=== PATIENT | female | born 1940 | race Caucasian/White ===

== ENCOUNTER → 2019-08-06 | Outpatient (CLI) | payer MEDICARE, OTHER | LOC: WOUNDCARE 08:08 | PROVIDERS: ATTEND Nurse Practitioner | DX: L03.031 Cellulitis of right toe (principal) | CPT/HCPCS: 99203 ==

== ENCOUNTER → 2019-10-19 | Outpatient (CLI) | payer MEDICARE | LOC: WOUNDCARE 09:53 | PROVIDERS: ATTEND Preventive Medicine Undersea and Hyperbaric Medicine | DX: B35.1 Tinea unguium (principal) | CPT/HCPCS: 11720 ==

== ENCOUNTER 2022-03-29 04:51 | Observation (INO) | payer MEDICARE ==
[~2022-03-29] VITALS: Ht 160 cm; Wt 73.8 kg
--- NOTE | 2022-03-29 05:14 | ED GI ---
General Chief Complaint: Abdominal/GI Problems Stated Complaint: NAUSEA/VOMITING History of Present Illness Date Seen by Provider: Mar 29, 2022 Time Seen by Provider: 05:11 Initial Comments 81-year-old female with PMH of DM2/HTN, is here with complaints of multiple episodes of nausea and vomiting since yesterday afternoon after she had gone out for French food with a friend. Patient also has associated generalized abdominal pain and cramping. Denies fever, chest pain, shortness of breath, palpitations, diarrhea, hematemesis, melena, dizziness, headache. Patient recently got over COVID for which she was diagnosed at the end of February. (VIRGIE PETERSON MD) Allergies and Home Medications Allergies Coded Allergies: No Known Drug Allergies (Unverified , 03/29/22) Patient Home Medication List Home Medication List Reviewed: Yes (VIRGIE PETERSON MD) Cefpodoxime Proxetil (Cefpodoxime Proxetil) 100 Mg Tablet, 100 MG PO BID Prescribed by: VIRGIE PETERSON MD on 03/29/22 0652 Metronidazole (Flagyl) 375 Mg Capsule, 500 MG PO BID Prescribed by: VIRGIE PETERSON MD on 03/29/22 0652 Review of Systems Review of Systems Constitutional: no symptoms reported EENTM: No Symptoms Reported Respiratory: No Symptoms Reported Cardiovascular: No Symptoms Reported Gastrointestinal: Abdominal Pain, Nausea, Vomiting Genitourinary: No Symptoms Reported Musculoskeletal: no symptoms reported Skin: no symptoms reported Psychiatric/Neurological: No Symptoms Reported Endocrine: No Symptoms Reported Hematologic/Lymphatic: No Symptoms Reported (VIRGIE PETERSON MD) Physical Exam Vital Signs Vital Signs - First Documented 03/29/22 05:05 Temp 36.8 Pulse 70 Resp 18 B/P (MAP) 194/80 (118) Pulse Ox 97 O2 Delivery Room Air (HAO MADISON MD) Vital Signs Capillary Refill : (VIRGIE PETERSON MD) Height/Weight/BMI Height: '" Weight: lbs. oz. kg; BMI Method: General Appearance: WD/WN, mild distress HEENT: PERRL/EOMI, normal ENT inspection Neck: non-tender, full range of motion, supple Respiratory: chest non-tender, lungs clear, normal breath sounds Cardiovascular: normal peripheral pulses, no edema Gastrointestinal: normal bowel sounds, soft, tenderness (generalized) Extremities: normal range of motion, non-tender, normal inspection Back: normal inspection, no CVA tenderness, no vertebral tenderness Neurologic/Psychiatric: no motor/sensory deficits, alert, normal mood/affect, oriented x 3 Skin: normal color, warm/dry Lymphatic: no adenopathy (VIRGIE PETERSON MD) Focused Exam Lactate Level 03/29/22 05:05: Lactic Acid Level 2.53*H 03/29/22 07:05: Lactic Acid Level 2.43*H 03/29/22 09:07: Lactic Acid Level 2.00 (HAO MADISON MD) Lactic Acid Level Laboratory Tests Test 03/29/22 05:05 03/29/22 07:05 03/29/22 09:07 Lactic Acid Level 2.53 MMOL/L (0.50-2.00) *H 2.43 MMOL/L (0.50-2.00) *H 2.00 MMOL/L (0.50-2.00) (HAO MADISON MD) Progress/Results/Core Measures Results/Orders Lab Results Laboratory Tests Test 03/29/22 05:05 03/29/22 05:20 03/29/22 06:30 03/29/22 07:05 Range/Units White Blood Count 20.7 H 4.3-11.0 10^3/uL Red Blood Count 4.90 3.80-5.11 10^6/uL Hemoglobin 14.2 11.5-16.0 g/dL Hematocrit 43 35-52 % Mean Corpuscular Volume 89 80-99 fL Mean Corpuscular Hemoglobin 29 25-34 pg Mean Corpuscular Hemoglobin Concent 33 32-36 g/dL Red Cell Distribution Width 13.6 10.0-14.5 % Platelet Count 201 130-400 10^3/uL Mean Platelet Volume 11.1 9.0-12.2 fL Immature Granulocyte % (Auto) 1 % Neutrophils (%) (Auto) 89 H 42-75 % Lymphocytes (%) (Auto) 4 L 12-44 % Monocytes (%) (Auto) 6 0-12 % Eosinophils (%) (Auto) 0 0-10 % Basophils (%) (Auto) 0 0-10 % Neutrophils # (Auto) 18.5 H 1.8-7.8 10^3/uL Lymphocytes # (Auto) 0.9 L 1.0-4.0 10^3/uL Monocytes # (Auto) 1.2 H 0.0-1.0 10^3/uL Eosinophils # (Auto) 0.0 0.0-0.3 10^3/uL Basophils # (Auto) 0.0 0.0-0.1 10^3/uL Immature Granulocyte # (Auto) 0.1 0.0-0.1 10^3/uL Neutrophils % (Manual) 87 % Lymphocytes % (Manual) 2 % Monocytes % (Manual) 4 % Eosinophils % (Manual) 0 % Basophils % (Manual) 0 % Band Neutrophils 7 % Sodium Level 136 135-145 MMOL/L Potassium Level 4.3 3.6-5.0 MMOL/L Chloride Level 98 98-107 MMOL/L Carbon Dioxide Level 24 21-32 MMOL/L Anion Gap 14 5-14 MMOL/L Blood Urea Nitrogen 14 7-18 MG/DL Creatinine 0.67 0.60-1.30 MG/DL Estimat Glomerular Filtration Rate 87 BUN/Creatinine Ratio 21 Glucose Level 356 H 70-105 MG/DL Lactic Acid Level 2.53 *H 2.43 *H 0.50-2.00 MMOL/L Calcium Level 9.5 8.5-10.1 MG/DL Corrected Calcium 9.3 8.5-10.1 MG/DL Magnesium Level 1.8 1.6-2.4 MG/DL Total Bilirubin 0.9 0.1-1.0 MG/DL Aspartate Amino Transf (AST/SGOT) 16 5-34 U/L Alanine Aminotransferase (ALT/SGPT) 14 0-55 U/L Alkaline Phosphatase 96 40-136 U/L Total Protein 7.3 6.4-8.2 GM/DL Albumin 4.3 3.2-4.5 GM/DL Lipase 16 8-78 U/L Influenza Type A (RT-PCR) Not Detected Not Detecte Influenza Type B (RT-PCR) Not Detected Not Detecte SARS-CoV-2 RNA (RT-PCR) Detected H Not Detecte Urine Color YELLOW Urine Clarity CLEAR Urine pH 6.5 5-9 Urine Specific [place] 1.015 L 1.016-1.022 Urine Protein NEGATIVE NEGATIVE Urine Glucose (UA) 3+ H NEGATIVE Urine Ketones 3+ H NEGATIVE Urine Nitrite NEGATIVE NEGATIVE Urine Bilirubin NEGATIVE NEGATIVE Urine Urobilinogen 0.2 < = 1.0 MG/DL Urine Leukocyte Esterase NEGATIVE NEGATIVE Urine RBC (Auto) NEGATIVE NEGATIVE Urine RBC RARE /HPF Urine WBC RARE /HPF Urine Squamous Epithelial Cells RARE /HPF Urine Crystals NONE /LPF Urine Bacteria TRACE /HPF Urine Casts NONE /LPF Urine Mucus SMALL H /LPF Urine Culture Indicated NO Test 03/29/22 09:07 Range/Units Lactic Acid Level 2.00 0.50-2.00 MMOL/L (HAO MADISON MD) My Orders Orders - HAO MADISON MD Arterial Blood Gas (03/29/22 08:22) Prochlorperazine Injection (Compazine In (03/29/22 10:00) (HAO MADISON MD) Medications Given in ED Current Medications Medications Dose Ordered Sig/Seth Route Start Time Stop Time Status Last Admin Dose Admin Ceftriaxone Sodium/Dextrose 50 ml @ 100 mls/hr ONCE ONCE IV 03/29/22 06:30 03/29/22 06:59 DC 03/29/22 06:47 100 MLS/HR Metronidazole 100 ml @ 100 mls/hr ONCE ONCE IV 03/29/22 06:30 03/29/22 07:29 DC 03/29/22 07:16 100 MLS/HR Ondansetron HCl 4 mg ONCE ONCE IVP 03/29/22 05:45 03/29/22 05:46 DC 03/29/22 06:00 4 MG Ondansetron HCl 4 mg ONCE ONCE IVP 03/29/22 07:30 03/29/22 07:31 DC 03/29/22 07:27 4 MG (HAO MADISON MD) Vital Signs/I&O 03/29/22 05:05 Temp 36.8 Pulse 70 Resp 18 B/P (MAP) 194/80 (118) Pulse Ox 97 O2 Delivery Room Air (HAO MADISON MD) Progress Progress Note : Progress Note 1. ABDOMINAL PAIN: GASTROENTERITIS/ DIVERTICULOSIS WITHOUT -ITIS/ DEHYDRATION - CT ABD: No bowel obstruction or other acute abnormalities seen in the abdomen or pelvis. Small hiatal hernia. Fat-containing inguinal hernias bilaterally. Small amount of fluid in the right with a loop of bowel in the left, but no evidence of obstruction or strangulation.Colonic diverticulosis without diverticulitis. Small left adrenal nodule - Labs : WBC is elevated at 20.7 with a left shift - Elevated Lactic acid of 2.53 - Blood cultures ordered after antibiotics, but cultures were done before the antibiotics were given. - UA: positive ketones and glucose - NS IVF bolus - Repeat Lactic acid is: - Zofran iv STAT - Ceftriaxone 1gm and Flagyl iv STAT - Added CXR - SIgned out pt to Dr Madison (VIRGIE PETERSON MD) Progress Note : Progress Note Patient care transferred to [place] at [address] Peterson for follow-up with repeat lactic acid and chest x-ray. Patient evaluated and chart reviewed. Patient did not have abdominal tenderness but is still complaining of nausea and mild vomiting. Lactic acid reported 2.43. Chest x-ray did not show acute finding. ABG showed pH of 7.39. Because of leukocytosis and elevation of lactic acid and intractable nausea and vomiting plan to admit patient. Dr. Bautista accepted admission at 0841. Patient and her daughter informed about test results, plan of care and need for admission at [facility] because of lack of inpatient admission in this facility. (HAO MADISON MD) Diagnostic Imaging Diagonstic Imaging: CT Plain Films/CT/US/NM/MRI: abdomen Comments [facility]. [place], [place] NAME: JEANNA BELTRAN [facility] REC#: [id number] PT STATUS: REG ER : 1940 PHYSICIAN: VIRGIE PETERSON MD ADMIT DATE: 03/29/22/ER FS Draft Date of Exam:03/29/22 CT ABDOMEN/PELVIS WO PROCEDURE: CT abdomen and pelvis without contrast. TECHNIQUE: Multiple contiguous axial images were obtained through the abdomen and pelvis without the use of intravenous contrast. Auto Exposure Controls were utilized during the CT exam to meet ALARA standards for radiation dose reduction. INDICATION: Abdominal pain, nausea, vomiting. COMPARISON: None FINDINGS: The lung bases demonstrate mild atelectasis. There is a small hiatal hernia. The liver demonstrates no focal lesions. The spleen has calcified granulomas. The pancreas is unremarkable. There is a left adrenal nodule which measures 1.8 x 2.1 cm in size, with internal Hounsfield units of 13. The kidneys demonstrate no hydronephrosis. No calculi are seen. The bowel loops are nondistended without obstruction. The appendix is normal. No free fluid or free air is seen. There are small fat-containing inguinal hernias bilaterally. The left contains a loop of small bowel, with no obstruction or strangulation evident. There is diverticulosis of the colon, particularly the sigmoid colon, without evidence of diverticulitis. There is a small amount of fluid in the right inguinal hernia. There are degenerative changes in the spine with no acute osseous abnormality seen. IMPRESSION: 1. No bowel obstruction or other acute abnormalities seen in the abdomen or pelvis. 2. Small hiatal hernia. 3. Fat-containing inguinal hernias bilaterally. Small amount of fluid in the right with a loop of bowel in the left, but no evidence of obstruction or strangulation. 4. Colonic diverticulosis without diverticulitis. 5. Small left adrenal nodule, very likely an adenoma, but technically indeterminate. If needed, nonemergent CT with adrenal contrast protocol could be considered to further evaluate. Dictated on workstation # [id number] Dict: 03/29/22610 Trans: 03/29/2218 [id number] Interpreted by: NOEL BANDA MD Electronically signed by: (VIRGIE PETERSON MD) Plain Films/CT/US/NM/MRI: chest Comments DEBRA: JEANNA BELTRAN MED REC#: [id number] PT STATUS: REG ER : 1940 PHYSICIAN: VIRGIE PETERSON MD ADMIT DATE: 03/29/22/ER FS Draft Date of Exam:03/29/22 CHEST 1 VIEW AP/PA ONLY PATIENT HISTORY: vomiting. TECHNIQUE: Single frontal view of the chest. COMPARISON: None FINDINGS: The lung volumes are normal. No focal consolidation is seen. There are calcified granulomas bilaterally. No large pleural effusion or pneumothorax is seen. The cardiomediastinal silhouette is normal in size and contour. No acute osseous abnormality is seen. IMPRESSION: No acute pulmonary abnormality seen. Dictated on workstation # [id number] Dict: 03/29/22717 Trans: 03/29/2225 [id number] Interpreted by: NOEL BANDA MD Electronically signed by: (HAO MADISON MD) Departure Communication (Admissions) Time/Spoke to Admitting Phy: 08:41 Dr. Bautista accepted admission (HAO MADISON MD) Impression Primary Impression: Sepsis Qualified Codes: A41.9 - Sepsis, unspecified organism Additional Impressions: Gastroenteritis due to food toxin Diverticulosis of colon without diverticulitis Dehydration Intractable nausea and vomiting Disposition: ADMITTED INPATIENT Condition: Improved Admissions Decision to Admit Reason: Admit from ER (Trauma) (Intractable nausea and vomiting, sepsis, COVID infection) Decision to Admit/Date: Mar 29, 2022 Time/Decision to Admit Time: 08:54 (HAO MADISON MD) Departure-Patient Inst. Referrals: ERIC CHAVES MD (PCP/Family) Primary Care Physician Add. Discharge Instructions: All discharge instructions reviewed with patient and/or family. Voiced understanding. VIRGIE PETERSON MD Mar 29, 2022 05:14 HAO MADISON MD Mar 29, 2022 08:56
[2022-03-29] MEDS ORDERED: NS IV 1000 ML 1,000 ML IV STA (05:34)
[2022-03-29] MEDS ORDERED: ONDANSETRON 4 MG/2 ML (SDV) Z0FRAN IVP ONE ×2 (05:45→07:30)
[2022-03-29 05:48] LABS: BASOPHILS % (AUTO) 0 % (0-10); EOSINOPHILS % (AUTO) 0 % (0-10); HEMATOCRIT 43 % (35-52); HEMOGLOBIN 14.2 g/dL (11.5-16.0); LYMPHOCYTES # (AUTO) 0.9 10^3/uL (1.0-4.0); LYMPHOCYTES % (AUTO) 4 % (12-44); MEAN CORPUSCULAR HEMOGLOBIN 29 pg (25-34); MEAN CORPUSCULAR HGB CONC 33 g/dL (32-36); MEAN CORPUSCULAR VOLUME 89 fL (80-99); MEAN PLATELET VOLUME 11.1 fL (9.0-12.2); MONOCYTES # (AUTO) 1.2 10^3/uL (0.0-1.0); MONOCYTES % (AUTO) 6 % (0-12); NEUTROPHILS # (AUTO) 18.5 10^3/uL (1.8-7.8); NEUTROPHILS % (AUTO) 89 % (42-75); PLATELET COUNT 201 10^3/uL (130-400); WHITE BLOOD COUNT 20.7 10^3/uL (4.3-11.0)
[2022-03-29 06:08] LABS: BILIRUBIN,TOTAL 0.9 MG/DL (0.1-1.0); CALCIUM 9.5 MG/DL (8.5-10.1); CREATININE SERUM 0.67 MG/DL (0.60-1.30); MAGNESIUM 1.8 MG/DL (1.6-2.4); POTASSIUM 4.3 MMOL/L (3.6-5.0)
[2022-03-29 06:09] LABS: ALBUMIN 4.3 GM/DL (3.2-4.5); BAND NEUTROPHILS 7 %; BASOPHILS % (MANUAL) 0 %; EOSINOPHILS % (MANUAL) 0 %; LYMPHOCYTES % (MANUAL) 2 %; MONOCYTES % (MANUAL) 4 %; NEUTROPHILS % (MANUAL) 87 %; TOTAL PROTEIN 7.3 GM/DL (6.4-8.2)
--- NOTE | 2022-03-29 06:20 | Diagnostic Imaging Report ---
PROCEDURE: CT abdomen and pelvis without contrast. TECHNIQUE: Multiple contiguous axial images were obtained through the abdomen and pelvis without the use of intravenous contrast. Auto Exposure Controls were utilized during the CT exam to meet ALARA standards for radiation dose reduction. INDICATION: Abdominal pain, nausea, vomiting. COMPARISON: None FINDINGS: The lung bases demonstrate mild atelectasis. There is a small hiatal hernia. The liver demonstrates no focal lesions. The spleen has calcified granulomas. The pancreas is unremarkable. There is a left adrenal nodule which measures 1.8 x 2.1 cm in size, with internal Hounsfield units of 13. The kidneys demonstrate no hydronephrosis. No calculi are seen. The bowel loops are nondistended without obstruction. The appendix is normal. No free fluid or free air is seen. There are small fat-containing inguinal hernias bilaterally. The left contains a loop of small bowel, with no obstruction or strangulation evident. There is diverticulosis of the colon, particularly the sigmoid colon, without evidence of diverticulitis. There is a small amount of fluid in the right inguinal hernia. There are degenerative changes in the spine with no acute osseous abnormality seen. IMPRESSION: 1. No bowel obstruction or other acute abnormalities seen in the abdomen or pelvis. 2. Small hiatal hernia. 3. Fat-containing inguinal hernias bilaterally. Small amount of fluid in the right with a loop of bowel in the left, but no evidence of obstruction or strangulation. 4. Colonic diverticulosis without diverticulitis. 5. Small left adrenal nodule, very likely an adenoma, but technically indeterminate. If needed, nonemergent CT with adrenal contrast protocol could be considered to further evaluate. Dictated by: Dictated on workstation # [id number]
[2022-03-29] MEDS ORDERED: cefTRIAXone 1 GM PRE-MIX 50 ML IV ONE (06:30)
[2022-03-29] MEDS ORDERED: metroNIDAZOLE 500MG/100ML IVPB 100 ML IV ONE (06:30)
[2022-03-29 06:48] LABS: BILIRUBIN,URINE NEGATIVE (NEGATIVE); CLARITY,URINE CLEAR; COLOR,URINE YELLOW; GLUCOSE, URINE (UA) 3+ (NEGATIVE); KETONES,URINE 3+ (NEGATIVE); LEUKOCYTE ESTERASE ,URINE NEGATIVE (NEGATIVE); NITRITE,URINE NEGATIVE (NEGATIVE); PH,URINE 6.5 (5-9); PROTEIN,URINE NEGATIVE (NEGATIVE)
[2022-03-29] MEDS ORDERED: CEFP100T2 PO (06:52)
[2022-03-29] MEDS ORDERED: METR375C PO (06:52)
[2022-03-29 07:04] LABS: BACTERIA,URINE TRACE /HPF; RBC,URINE RARE /HPF; SQUAMOUS EPITHELIAL CELL,UR RARE /HPF; WBC,URINE RARE /HPF
--- NOTE | 2022-03-29 07:25 | Diagnostic Imaging Report ---
PATIENT HISTORY: vomiting. TECHNIQUE: Single frontal view of the chest. COMPARISON: None FINDINGS: The lung volumes are normal. No focal consolidation is seen. There are calcified granulomas bilaterally. No large pleural effusion or pneumothorax is seen. The cardiomediastinal silhouette is normal in size and contour. No acute osseous abnormality is seen. IMPRESSION: No acute pulmonary abnormality seen. Dictated by: Dictated on workstation # [id number]
[2022-03-29] MEDS ORDERED: PROCHLORPERAZINE 10 MG/2ML INJ (COMPAZINE) IV ONE (10:00)
[2022-03-29] MEDS ORDERED: ONDANSETRON 4 MG (ZOFRAN) ORAL DISSOLVE TAB PO PRN (14:00)
[2022-03-29] MEDS ORDERED: morphine INJ 4 MG/ML 1 ML (VIAL/SYRINGE) IV PRN (14:00)
[2022-03-29] MEDS ORDERED: PROCHLORPERAZINE 10 MG TAB (COMPAZINE) PO PRN (14:00)
[2022-03-29] MEDS ORDERED: ANTACID SUSP 30 ML UDC (MYLANTA) PO PRN (14:00)
[2022-03-29] MEDS ORDERED: BISACODYL 10 MG SUPP (DULCOLAX) PR PRN (14:00)
[2022-03-29] MEDS ORDERED: ACETAMINOPHEN 325 MG TABLET PO PRN (14:00)
[2022-03-29] MEDS ORDERED: MELATONIN 3 MG TABLET PO PRN (14:00)
[2022-03-29] MEDS ORDERED: diphenhydrAMINE 25 MG TAB (BENADRYL) PO PRN (14:00)
[2022-03-29] MEDS ORDERED: ONDANSETRON 4 MG/2 ML (SDV) Z0FRAN IV PRN (14:00)
[2022-03-29] MEDS ORDERED: ENOXAPARIN 40 MG/0.4 ML (LOVENOX) SYR SC SCH (14:00)
[2022-03-29] MEDS ORDERED: ALPRAZolam 0.25 MG (XANAX) TAB PO PRN (14:00)
[2022-03-29] MEDS ORDERED: PROMETHAZINE INJ 25 MG/ML (PHENERGAN) AMP IM PRN (14:00)
[2022-03-29] MEDS ORDERED: diphenhydrAMINE 50 MG/ML INJ (BENADRYL) IVP PRN (14:00)
[2022-03-29] MEDS ORDERED: polyethylene glycoL POWDER 17 GM (MIRALAX) PACK PO PRN (14:00)
[2022-03-29] MEDS ORDERED: cefTRIAXone 1 GM PRE-MIX 50 ML IV SCH (14:00)
[2022-03-29 14:08] VITALS: BP 186/81
--- NOTE | 2022-03-29 14:45 | History & Physical-Hospitalist ---
YAN ZHOU 03/29/22 1445: History of Present Illness HPI/Chief Complaint Penny James is an 81 yo female with past medical history of T2DM and HTN who presents on 03/29 with 12 hour history of N/V and abdominal cramps after eating at a [place] food buffet. She ate lunch at the restaurant with a friend yesterday and 2 hours later developed severe stomach cramps followed by numerous episodes of vomiting and two episodes of diarrhea. She tried to take peptobismol but was unable to keep the medication down. The friend that she ate lunch with reported mild abdominal cramping but no N/V. She recently had Covid, but had been asymptomatic before these symptoms began. She received antiemetic medications in the ED and has not vomited since. Her stomach cramps have fully resolved and she denies any abdominal pain but remains slightly nauseous. Source: patient, family Date Seen 03/29/22 Time Seen by a Provider: 14:30 Attending Physician Antony Velez MD PCP Admitting Physician: Shana Medina DO Attending Physician: Shana Medina DO Referring Physician Date of Admission Mar 29, 2022 at 13:42 Home Medications & Allergies Home Medications Reviewed patient Home Medication Reconciliation performed by pharmacy medication reconciliations maintenance technician 2nd shift and/or nursing. Patients Allergies have been reviewed. Allergies Allergies Coded Allergies No Known Drug Allergies (Unverified03/29/22) Past Rhyrrrr-Mwyaai-Lfjcas Hx Patient Social History Tobacco Use?: No Substance use?: No Alcohol Use?: No Pt feels they are or have been: No Current Status status: No Advance Directives: No Communicates: Verbally Primary Language: Welsh Preferred Spoken Language: Welsh Is interpretation needed?: No Past Medical History Surgeries: Tubal Ligation Heart Murmur (aortic and mitral valve regurgitation), Hypertension [employer] History: Tubal Ligation Diabetes, Non-Insulin dep Family Medical History Heart Disease (Father and Mother), Diabetes (Mother) Review of Systems Constitutional: No chills, No diaphoresis, No dizziness, No fever, No weight gain, No weight loss EENTM: No blurred vision, No eye pain, No throat pain Respiratory: No cough, No dyspnea on exertion Cardiovascular: No chest pain Gastrointestinal: No abdominal pain; diarrhea, loss of appetite, nausea, vomiting Genitourinary: No dysuria, No frequency Musculoskeletal: joint pain (Left knee (chronic problem)) Skin: rash (over right leg and left arm (chronic problem)) Psychiatric/Neurological: Denies Headache, Denies Weakness Physical Exam Physical Exam Vital Signs Vital Signs - First Documented 03/29/22 05:05 Temp 36.8 Pulse 70 Resp 18 B/P (MAP) 194/80 (118) Pulse Ox 97 O2 Delivery Room Air Capillary Refill : Less Than 3 Seconds Height, Weight, BMI Height: '" Weight: lbs. oz. kg; 28.82 BMI Method: General Appearance: No Apparent Distress HEENT: PERRL/EOMI, Other (dry lips) Neck: Normal Inspection, Non Tender, Supple Respiratory: Chest Non Tender, Lungs Clear, Normal Breath Sounds Cardiovascular: Regular Rate, Rhythm, No Edema, No JVD, Normal Peripheral Puls es, Systolic Murmur Gastrointestinal: Normal Bowel Sounds, Non Tender Rectal: Deferred Back: Normal Inspection, No CVA Tenderness Extremity: Normal Capillary Refill, No Calf Tenderness Neurologic/Psychiatric: Alert, Oriented x3 Skin: Normal Color, Warm/Dry, Rash (scabs present over right leg and left forearm) Lymphatic: No Adenopathy Results Results/Procedures Labs Laboratory Tests 03/29/22 05:05 Patient resulted labs reviewed. Assessment/Plan Admission Diagnosis Gastroenteritis Assessment and Plan 1) Abdominal Pain: Gastroenteritis * Labs : WBC is elevated at 20.7 with a left shift * Elevated Lactic acid of 2.53 in ED, trending down. Now 2.00 * Blood cultures ordered and pending * NS IVF bolus * Zofran, compazine, and phenergan for nausea * Ceftriaxone and Flagyl * CT ABD (03/29): No bowel obstruction or other acute abnormalities seen in the abdomen or pelvis. Colonic diverticulosis without diverticulitis. Small left adrenal nodule * CXR (03/29): Unremarkable * UA: positive ketones and glucose 2) T2DM * Hold home medications in inpatient setting * Glucose in 300s today * UA: positive ketones and glucose * Sliding scale insulin 3) HTN * BP elevated today, patient denies taking antihypertensive at home * Consider starting antihypertensive SHANA MEDINA DO 03/30/22 0606: History of Present Illness HPI/Chief Complaint CC: Abdominal pain with N/V HPI: This is a pt that presented with JOSE E and was found to have colitis on imaging scan. She was placed on Rocephin and Flagyl. She was found to be Covid positive. She denied any cough or SOB. No hypoxia. She will be given supportive care and monitored closely for any decline from Covid. Source: patient, family Past Tieiuwt-Mlinwk-Xgfwga Hx Patient Social History Marrital Status: Employed/Student: retired Smoking Status: Former Smoker Review of Systems Constitutional: see HPI Gastrointestinal: diarrhea, loss of appetite, nausea, vomiting Physical Exam Physical Exam General Appearance: No Apparent Distress Eyes: Right Eye Normal Inspection, Right Eye PERRL HEENT: PERRL/EOMI, Normal ENT Inspection, Pharynx Normal, Moist Mucous Membranes Neck: Full Range of Motion, Normal Inspection, Non Tender Respiratory: Chest Non Tender, Lungs Clear, Normal Breath Sounds, No Accessory Muscle Use, No Respiratory Distress Cardiovascular: Regular Rate, Rhythm, No Edema, No Gallop, No JVD, No Murmur, Normal Peripheral Pulses Gastrointestinal: Normal Bowel Sounds, No Organomegaly, No Pulsatile Mass, Non Tender, Soft Back: Normal Inspection, No CVA Tenderness, No Vertebral Tenderness Extremity: Normal Capillary Refill, Normal Inspection, Normal Range of Motion, Non Tender, No Calf Tenderness, No Pedal Edema Neurologic/Psychiatric: Alert, Oriented x3, No Motor/Sensory Deficits, Normal Mood/Affect Skin: Normal Color, Warm/Dry Lymphatic: No Adenopathy Assessment/Plan Admission Diagnosis Colitis. COVID 19 N/V Plan: IVF Supportive care Admission Status: Observation Diagnosis/Problems Diagnosis/Problems (1) Intractable nausea and vomiting Status: Acute (2) Dehydration Status: Acute (3) COVID Supervisory-Addendum Brief Verification & Attestation Participated in pt care: history, MDM, physical Personally performed: exam, history, MDM, supervision of care Care discussed with: Medical Student Procedures: n/a Results interpretation: Verified all documentation Verification and Attestation of Medical Student E/M Service A medical student performed and documented this service in my presence. I reviewed and verified all information documented by the medical student and made modifications to such information, when appropriate. I personally performed the physical exam and medical decision making. Shana Medina Mar 30, 2022,21:12 YAN ZHOU Mar 29, 2022 14:45 SHANA MEDINA DO Mar 30, 2022 06:06
[2022-03-29] MEDS: NS IV 1000 ML 1,000 ML IV SCH (15:00)
[2022-03-29] MEDS: metroNIDAZOLE 500MG/100ML IVPB 100 ML IV SCH ×2 (15:00→21:37)
[2022-03-29] MEDS ORDERED: SIMV20TA26 PO (15:49)
[2022-03-29] MEDS ORDERED: ASPI81CA PO (15:49)
[2022-03-29] MEDS ORDERED: ASCO-262 PO (15:49)
[2022-03-29] MEDS ORDERED: PREVAGEN PO (15:49)
[2022-03-29] MEDS ORDERED: ZINC50TA58 PO (15:49)
[2022-03-29] MEDS ORDERED: LOSA25TA41 PO (15:49)
[2022-03-29] MEDS ORDERED: GLIM2TAB4 PO (15:49)
[2022-03-29] MEDS ORDERED: METF-397 PO (15:49)
[2022-03-29] MEDS ORDERED: VIT1CAPS5 PO (15:49)
[2022-03-29] MEDS ORDERED: CHOL200059 PO (15:49)
[2022-03-29 15:58] VITALS: BP 178/77
[2022-03-29 16:09] VITALS: BP 178/77
[2022-03-29] MEDS: inSUlin ASPART (NovoLOG) 1 UNIT/0.01 ML (CHARGE PER UNIT) SC SCH ×2 (16:59→21:38)
[2022-03-29 20:01] VITALS: BP 114/67
[2022-03-29] MEDS: DOCUSATE SODIUM 100 MG (COLACE) CAP PO SCH (21:38)
[2022-03-30 00:04] VITALS: BP 104/53
[2022-03-30] MEDS: NS IV 1000 ML 1,000 ML IV SCH ×2 (01:14→05:58)
[2022-03-30 03:37] VITALS: BP 125/56
[2022-03-30 05:44] LABS: BASOPHILS % (AUTO) 0 % (0-10); EOSINOPHILS # (AUTO) 0.1 10^3/uL (0.0-0.3); EOSINOPHILS % (AUTO) 1 % (0-10); HEMATOCRIT 36 % (35-52); HEMOGLOBIN 11.8 g/dL (11.5-16.0); LYMPHOCYTES # (AUTO) 2.3 10^3/uL (1.0-4.0); LYMPHOCYTES % (AUTO) 14 % (12-44); MEAN CORPUSCULAR HEMOGLOBIN 30 pg (25-34); MEAN CORPUSCULAR HGB CONC 33 g/dL (32-36); MEAN CORPUSCULAR VOLUME 91 fL (80-99); MEAN PLATELET VOLUME 10.6 fL (9.0-12.2); MONOCYTES # (AUTO) 1.4 10^3/uL (0.0-1.0); MONOCYTES % (AUTO) 8 % (0-12); NEUTROPHILS # (AUTO) 12.6 10^3/uL (1.8-7.8); NEUTROPHILS % (AUTO) 77 % (42-75); PLATELET COUNT 161 10^3/uL (130-400); WHITE BLOOD COUNT 16.4 10^3/uL (4.3-11.0)
[2022-03-30] MEDS: inSUlin ASPART (NovoLOG) 1 UNIT/0.01 ML (CHARGE PER UNIT) SC SCH ×2 (05:58→11:08)
[2022-03-30] MEDS: metroNIDAZOLE 500MG/100ML IVPB 100 ML IV SCH (05:58)
[2022-03-30 05:59] LABS: ALBUMIN 3.2 GM/DL (3.2-4.5); POTASSIUM 3.5 MMOL/L (3.6-5.0)
[2022-03-30 06:00] LABS: CALCIUM 8.2 MG/DL (8.5-10.1)
[2022-03-30 06:02] LABS: TOTAL PROTEIN 5.3 GM/DL (6.4-8.2)
[2022-03-30 06:03] LABS: BILIRUBIN,TOTAL 0.7 MG/DL (0.1-1.0)
[2022-03-30 06:05] LABS: CREATININE SERUM 0.69 MG/DL (0.60-1.30)
[2022-03-30] MEDS ORDERED: cefTRIAXone 1 GM PRE-MIX 50 ML IV SCH (07:00)
[2022-03-30] MEDS: DOCUSATE SODIUM 100 MG (COLACE) CAP PO SCH (08:25)
[2022-03-30 08:58] VITALS: BP 138/63
--- NOTE | 2022-03-30 10:18 | Discharge Summary ---
Diagnosis/Chief Complaint Date of Admission Mar 29, 2022 at 13:42 Date of Discharge Discharge Date: Mar 30, 2022 Discharge Summary Discharge Physical Examination Allergies: Coded Allergies: amoxicillin (Verified Allergy, Unknown, 03/30/22) clavulanic acid (Verified Allergy, Unknown, 03/30/22) Vitals & I&Os Vital Signs Date Time Temp Pulse Resp B/P (MAP) Pulse Ox O2 Delivery O2 Flow Rate FiO2 03/30/22 08:58 36.5 58 19 138/63 (88) 100 Room Air 03/29/22 16:09 21 Hospital Course Labs (last 24 hrs) Laboratory Tests 03/29/22 05:05: White Blood Count 20.7H, Red Blood Count 4.90, Hemoglobin 14.2, Hematocrit 43, Mean Corpuscular Volume 89, Mean Corpuscular Hemoglobin 29, Mean Corpuscular Hemoglobin Concent 33, Red Cell Distribution Width 13.6, Platelet Count 201, Mean Platelet Volume 11.1, Immature Granulocyte % (Auto) 1, Neutrophils (%) (Auto) 89H, Lymphocytes (%) (Auto) 4L, Monocytes (%) (Auto) 6, Eosinophils (%) (Auto) 0, Basophils (%) (Auto) 0, Neutrophils # (Auto) 18.5H, Lymphocytes # ( Auto) 0.9L, Monocytes # (Auto) 1.2H, Eosinophils # (Auto) 0.0, Basophils # (Auto) 0.0, Immature Granulocyte # (Auto) 0.1, Neutrophils % (Manual) 87, Lymphocytes % (Manual) 2, Monocytes % (Manual) 4, Eosinophils % (Manual) 0, Basophils % (Manual) 0, Band Neutrophils 7, Sodium Level 136, Potassium Level 4.3, Chloride Level 98, Carbon Dioxide Level 24, Anion Gap 14, Blood Urea Nitrogen 14, Creatinine 0.67, Estimat Glomerular Filtration Rate 87, BUN/Creatinine Ratio 21, Glucose Level 356H, Lactic Acid Level 2.53*H, Calcium Level 9.5, Corrected Calcium 9.3, Magnesium Level 1.8, Total Bilirubin 0.9, Aspartate Amino Transf (AST/SGOT) 16, Alanine Aminotransferase (ALT/SGPT) 14, Alkaline Phosphatase 96, Total Protein 7.3, Albumin 4.3, Lipase 16 03/29/22 05:20: Influenza Type A (RT-PCR) Not Detected, Influenza Type B (RT-PCR) Not Detected, SARS-CoV-2 RNA (RT-PCR) DetectedH 03/29/22 06:30: Urine Color YELLOW, Urine Clarity CLEAR, Urine pH 6.5, Urine Specific [place] 1.015L, Urine Protein NEGATIVE, Urine Glucose (UA) 3+H, Urine Ketones 3+H, Urine Nitrite NEGATIVE, Urine Bilirubin NEGATIVE, Urine Urobilinogen 0.2, Urine Leukocyte Esterase NEGATIVE, Urine RBC (Auto) NEGATIVE, Urine RBC RARE, Urine WBC RARE, Urine Squamous Epithelial Cells RARE, Urine Crystals NONE, Urine Bacteria TRACE, Urine Casts NONE, Urine Mucus SMALLH, Urine Culture Indicated NO 03/29/22 07:05: Lactic Acid Level 2.43*H 03/29/22 09:07: Lactic Acid Level 2.00 03/29/22 10:57: Glucometer 308H 03/29/22 15:08: Glucometer 298H 03/29/22 21:00: Glucometer 300H 03/30/22 05:22: White Blood Count 16.4H, Red Blood Count 4.00, Hemoglobin 11.8, Hematocrit 36, Mean Corpuscular Volume 91, Mean Corpuscular Hemoglobin 30, Mean Corpuscular Hemoglobin Concent 33, Red Cell Distribution Width 14.3, Platelet Count 161, Mean Platelet Volume 10.6, Immature Granulocyte % (Auto) 1, Neutrophils (%) (Auto) 77H, Lymphocytes (%) (Auto) 14, Monocytes (%) (Auto) 8, Eosinophils (%) (Auto) 1, Basophils (%) (Auto) 0, Neutrophils # (Auto) 12.6H, Lymphocytes # (Auto) 2.3, Monocytes # (Auto) 1.4H, Eosinophils # (Auto) 0.1, Basophils # (Auto) 0.0, Immature Granulocyte # (Auto) 0.1, Sodium Level 139, Potassium Level 3.5L, Chloride Level 108H, Carbon Dioxide Level 21, Anion Gap 10, Blood Urea Nitrogen 14, Creatinine 0.69, Estimat Glomerular Filtration Rate 87, BUN/Creatinine Ratio 20, Glucose Level 200H, Calcium Level 8.2L, Corrected Calcium 8.8, Total Bilirubin 0.7, Aspartate Amino Transf (AST/SGOT) 17, Alanine Aminotransferase (ALT/SGPT) 13, Alkaline Phosphatase 59, Total Protein 5.3L, Albumin 3.2 03/30/22 05:44: Glucometer 214H Pending Labs Laboratory Tests 03/29/22 05:05: White Blood Count 20.7, Red Blood Count 4.90, Hemoglobin 14.2, Hematocrit 43, Mean Corpuscular Volume 89, Mean Corpuscular Hemoglobin 29, Mean Corpuscular Hemoglobin Concent 33, Red Cell Distribution Width 13.6, Platelet Count 201, Mean Platelet Volume 11.1, Immature Granulocyte % (Auto) 1, Neutrophils (%) (Auto) 89, Lymphocytes (%) (Auto) 4, Monocytes (%) (Auto) 6, Eosinophils (%) (Auto) 0, Basophils (%) (Auto) 0, Neutrophils # (Auto) 18.5, Lymphocytes # (Auto) 0.9, Monocytes # (Auto) 1.2, Eosinophils # (Auto) 0.0, Basophils # (Auto) 0.0, Immature Granulocyte # (Auto) 0.1, Neutrophils % (Manual) 87, Lymphocytes % (Manual) 2, Monocytes % (Manual) 4, Eosinophils % (Manual) 0, Basophils % (Manual) 0, Band Neutrophils 7, Sodium Level 136, Potassium Level 4.3, Chloride Level 98, Carbon Dioxide Level 24, Anion Gap 14, Blood Urea Nitrogen 14, Creatinine 0.67, Estimat Glomerular Filtration Rate 87, BUN/Creatinine Ratio 21, Glucose Level 356, Lactic Acid Level 2.53, Calcium Level 9.5, Corrected Calcium 9.3, Magnesium Level 1.8, Total Bilirubin 0.9, Aspartate Amino Transf (AST/SGOT) 16, Alanine Aminotransferase (ALT/SGPT) 14, Alkaline Phosphatase 96, Total Protein 7.3, Albumin 4.3, Lipase 16 03/29/22 05:20: Influenza Type A (RT-PCR) Not Detected, Influenza Type B (RT-PCR) Not Detected, SARS-CoV-2 RNA (RT-PCR) Detected 03/29/22 06:30: Urine Color YELLOW, Urine Clarity CLEAR, Urine pH 6.5, Urine Specific [place] 1.015, Urine Protein NEGATIVE, Urine Glucose (UA) 3+, Urine Ketones 3+, Urine Nitrite NEGATIVE, Urine Bilirubin NEGATIVE, Urine Urobilinogen 0.2, Urine Leukocyte Esterase NEGATIVE, Urine RBC (Auto) NEGATIVE, Urine RBC RARE, Urine WBC RARE, Urine Squamous Epithelial Cells RARE, Urine Crystals NONE, Urine Bacteria TRACE, Urine Casts NONE, Urine Mucus SMALL, Urine Culture Indicated NO 03/29/22 07:05: Lactic Acid Level 2.43 03/29/22 09:07: Lactic Acid Level 2.00 03/29/22 10:57: Glucometer 308 03/29/22 15:08: Glucometer 298 03/29/22 21:00: Glucometer 300 03/30/22 05:22: White Blood Count 16.4, Red Blood Count 4.00, Hemoglobin 11.8, Hematocrit 36, Mean Corpuscular Volume 91, Mean Corpuscular Hemoglobin 30, Mean Corpuscular Hemoglobin Concent 33, Red Cell Distribution Width 14.3, Platelet Count 161, Mean Platelet Volume 10.6, Immature Granulocyte % (Auto) 1, Neutrophils (%) (Auto) 77, Lymphocytes (%) (Auto) 14, Monocytes (%) (Auto) 8, Eosinophils (%) (Auto) 1, Basophils (%) (Auto) 0, Neutrophils # (Auto) 12.6, Lymphocytes # (Auto) 2.3, Monocytes # (Auto) 1.4, Eosinophils # (Auto) 0.1, Basophils # (Auto) 0.0, Immature Granulocyte # (Auto) 0.1, Sodium Level 139, Potassium Level 3.5, C hloride Level 108, Carbon Dioxide Level 21, Anion Gap 10, Blood Urea Nitrogen 14, Creatinine 0.69, Estimat Glomerular Filtration Rate 87, BUN/Creatinine Ratio 20, Glucose Level 200, Calcium Level 8.2, Corrected Calcium 8.8, Total Bilirubin 0.7, Aspartate Amino Transf (AST/SGOT) 17, Alanine Aminotransferase (ALT/SGPT) 13, Alkaline Phosphatase 59, Total Protein 5.3, Albumin 3.2 03/30/22 05:44: Glucometer 214 Discharge Home Medications: Active Scripts Active Reported Vitamin C (Ascorbate Calcium) 500 Mg Tablet 500 Mg PO DAILY [place] (Aspirin) 81 Mg Capsule 81 Mg PO DAILY Preservision Areds Softgel (Vit A/C/E/Zinc/Co) 14,320-226 Capsule 1 Cap PO BID [Prevagen] 1 Ea PO DAILY Zinc 50 Mg Tablet 50 Mg PO DAILY Vitamin D3 (Cholecalciferol (Vitamin D3)) 50 Mcg (2000 Unit) Tablet 50 Mcg PO DAILY Losartan Potassium 25 Mg Tablet 25 Mg PO HS Simvastatin 20 Mg Tablet 20 Mg PO HS Glimepiride 2 Mg Tablet 2 Mg PO DAILY Metformin HCl 500 Mg Tablet 500 Mg PO BIDPC Instructions to patient/family Please see electronic discharge instructions given to patient. LORETO MEDINA DO Mar 30, 2022 10:18
--- NOTE | 2022-03-30 10:19 | Discharge Summary ---
Discharge Summary Hospital Course Was the Problem List Reviewed?: Yes Problems/Dx: (1) Intractable nausea and vomiting Status: Acute (2) Dehydration Status: Acute Hospital Course Date of Admission: Mar 29, 2022 at 13:42 Admission Diagnosis : Family Physician/Provider: Antony Velez MD Date of Discharge: 03/30/22 Discharge Diagnosis: [ ] Hospital Course: Brief Hospital Course: Penny James is an 81 yo female with past medical history of T2DM and HTN who presented on 03/29 with 12 hour history of N/V and abdominal cramps after eating at a [employer] food buffet. Upon arrival she had an leukocytosis and an elevated lactic acid. Blood cultures were obtained and she was started on Ceftriaxone, Flagyl, and IV fluids. Zofran, Compazine, and Phenergan were provided for nausea. a CT abdomen showed no evidence of bowel obstruction. Chest x ray was unremarkable. UA was positive for ketones and glucose but showed no evidence of infection. Her labs trended downward and she had no episodes of emesis while inpatient. Antibiotics were discontinued. Her diabetes was controlled with sliding scale insulin throughout her hospitalization. She is being discharged home in stable condition with instr uctions to follow up with her PCP in one week. YAN ZHOU Labs and Pending Lab Test: Laboratory Tests 03/29/22 10:57: Glucometer 308H 03/29/22 15:08: Glucometer 298H 03/29/22 21:00: Glucometer 300H 03/30/22 05:22: White Blood Count 16.4H, Red Blood Count 4.00, Hemoglobin 11.8, Hematocrit 36, Mean Corpuscular Volume 91, Mean Corpuscular Hemoglobin 30, Mean Corpuscular Hemoglobin Concent 33, Red Cell Distribution Width 14.3, Platelet Count 161, Mean Platelet Volume 10.6, Immature Granulocyte % (Auto) 1, Neutrophils (%) (Auto) 77H, Lymphocytes (%) (Auto) 14, Monocytes (%) (Auto) 8, Eosinophils (%) (Auto) 1, Basophils (%) (Auto) 0, Neutrophils # (Auto) 12.6H, Lymphocytes # (Auto) 2.3, Monocytes # (Auto) 1.4H, Eosinophils # (Auto) 0.1, Basophils # (Auto) 0.0, Immature Granulocyte # (Auto) 0.1, Sodium Level 139, Potassium Level 3.5L, Chloride Level 108H, Carbon Dioxide Level 21, Anion Gap 10, Blood Urea Nitrogen 14, Creatinine 0.69, Estimat Glomerular Filtration Rate 87, BUN/Cre atinine Ratio 20, Glucose Level 200H, Calcium Level 8.2L, Corrected Calcium 8.8, Total Bilirubin 0.7, Aspartate Amino Transf (AST/SGOT) 17, Alanine Aminotransferase (ALT/SGPT) 13, Alkaline Phosphatase 59, Total Protein 5.3L, Albumin 3.2 03/30/22 05:44: Glucometer 214H Home Meds Active Reported Vitamin C (Ascorbate Calcium) 500 Mg Tablet 500 Mg PO DAILY [place] (Aspirin) 81 Mg Capsule 81 Mg PO DAILY Preservision Areds Softgel (Vit A/C/E/Zinc/Co) 14,320-226 Capsule 1 Cap PO BID [Prevagen] 1 Ea PO DAILY Zinc 50 Mg Tablet 50 Mg PO DAILY Vitamin D3 (Cholecalciferol (Vitamin D3)) 50 Mcg (2000 Unit) Tablet 50 Mcg PO DAILY Losartan Potassium 25 Mg Tablet 25 Mg PO HS Simvastatin 20 Mg Tablet 20 Mg PO HS Glimepiride 2 Mg Tablet 2 Mg PO DAILY Metformin HCl 500 Mg Tablet 500 Mg PO BIDPC Assessment/Pt Instructions Gastroenteritis Discharge Planning: <30 minutes discharge planning Discharge Instructions Discharge Diet: ADA Diet Discharge Physical Examination Vital Signs Vital Signs Date Time Temp Pulse Resp B/P (MAP) Pulse Ox O2 Delivery O2 Flow Rate FiO2 03/30/22 08:58 36.5 58 19 138/63 (88) 100 Room Air 03/29/22 16:09 21 General Appearance: No Apparent Distress, WD/WN, Chronically ill Allergies: Coded Allergies: amoxicillin (Verified Allergy, Unknown, 03/30/22) clavulanic acid (Verified Allergy, Unknown, 03/30/22) Discharge Summary Date of Admission Mar 29, 2022 at 13:42 Date of Discharge Discharge Date: Mar 30, 2022 Admission Diagnosis Colitis. COVID 19 N/V LORETO MEDINA DO Mar 30, 2022 10:19
--- NOTE | 2022-03-30 11:39 | Progress Note ---
YAN ZHOU 03/30/22 1139: Progress Note Brief Hospital Course: Penny James is an 81 yo female with past medical history of T2DM and HTN who presented on 03/29 with 12 hour history of N/V and abdominal cramps after eating at a [employer] food buffet. Upon arrival she had an leukocytosis and an elevated lactic acid. Blood cultures were obtained and she was started on Ceftriaxone, Flagyl, and IV fluids. Zofran, Compazine, and Phenergan were provided for nausea. a CT abdomen showed no evidence of bowel obstruction. Chest x ray was unremarkable. UA was positive for ketones and glucose but showed no evidence of infection. Her labs trended downward and she had no episodes of emesis while inpatient. Antibiotics were discontinued. Her diabetes was controlled with sliding scale insulin throughout her hospitalization. She is being discharged home in stable condition with instructions to follow up with her PCP in one week. SHANA MEDINA DO 03/30/22 2208: Supervisory-Addendum Brief Verification & Attestation Participated in pt care: history, MDM, physical Personally performed: exam, history, MDM, supervision of care Care discussed with: Medical Student Procedures: n/a Results interpretation: Verified all documentation Verification and Attestation of Medical Student E/M Service A medical student performed and documented this service in my presence. I reviewed and verified all information documented by the medical student and made modifications to such information, when appropriate. I personally performed the physical exam and medical decision making. Shana Medina, Mar 30, 2022,22:08 YAN ZHOU Mar 30, 2022 11:39 SHANA MEDINA DO Mar 30, 2022 22:08
[2022-03-30 11:50] VITALS: BP 138/63
[2022-03-30] MEDS ORDERED: metFORMIN 500 MG (GLUCOPHAGE) TAB PO SCH (18:00)
[2022-03-30] MEDS ORDERED: NON-FORMULARY MEDICATION 1 EA EA (Simvastatin 20 MG) PO SCH (21:00)
[2022-03-30] MEDS ORDERED: LOSARTAN 25 MG (COZAAR) TAB PO SCH (21:00)
[2022-03-30] MEDS ORDERED: PRESERVISION AREDS SOFTGEL (BAUSH & LOMB) PO SCH (21:00)
[2022-03-31] MEDS ORDERED: NON-FORMULARY MEDICATION 1 EA EA (Ascorbate Calcium (Vitamin C) 500 MG) PO SCH (09:00)
[2022-03-31] MEDS ORDERED: GLIMEPIRIDE 2 MG (AMARYL) TAB PO SCH (09:00)
[2022-03-31] MEDS ORDERED: ASPIRIN 81 MG PO SCH (09:00)
[2022-03-31] MEDS ORDERED: NON-FORMULARY MEDICATION 1 EA EA (Zinc 50 MG) PO SCH (09:00)
[2022-03-31] MEDS ORDERED: PREVAGEN PO SCH (09:00)
[2022-03-31] MEDS ORDERED: NON-FORMULARY MEDICATION 1 EA EA (Cholecalciferol (Vitamin D3) (Vitamin D3) 50 MCG) PO SCH (09:00)
== END 2022-03-30 10:17 | disposition home or self-care (01) ==
LOC: EDUNIT# 04:51 → ER FS 04:57 → 4TH 13:42 → UNDOADMOB 13:42 → 4TH 14:00 → UNDODISOB 03-30 11:51
PROVIDERS: ADMIT Internal Medicine; ATTEND Internal Medicine
DX: A05.9 Bacterial foodborne intoxication, unspecified (principal); E86.0 Dehydration; K52.9 Noninfective gastroenteritis and colitis, unspecified; U07.1 COVID-19; A41.9 Sepsis, unspecified organism; K57.30 Diverticulosis of large intestine without perforation or abscess without bleeding; E11.9 Type 2 diabetes mellitus without complications; I10 Essential (primary) hypertension
CPT/HCPCS: 36415; 71045; 74176; 80053 ×2; 81000; 82947 ×2; 83605; 83690; 83735; 85007; 85025; 85027; 87040; 87636; 94760; 96361; 96365; 96367; 96372; 96375; 96376 ×3; 99285; G0378

== ENCOUNTER → 2022-07-31 | Outpatient (CLI) | payer MEDICARE ==
[~2022-07-31] MED LIST: ASCO-262 PO; ASPI81CA PO; CEFP100T2 PO; CHOL200059 PO; GADOTERATE 0.5 MMOL/ML (CLARISCAN) 15 ML VIAL IV ONE; GLIM2TAB4 PO; LOSA25TA41 PO; METF-397 PO; METR375C PO; PREVAGEN PO; SIMV20TA26 PO; VIT1CAPS5 PO; ZINC50TA58 PO
--- NOTE | 2022-07-31 18:05 | Diagnostic Imaging Report ---
PROCEDURE: MR imaging of the brain with and without contrast. TECHNIQUE: Multiplanar, multisequence MR imaging of the brain was performed with and without contrast. INDICATION: Double vision. COMPARISON: None. FINDINGS: Mild to moderate generalized parenchymal volume loss. 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 No abnormal intracranial enhancement. No restricted water diffusion. No hemosiderin deposition or evidence of intracranial hemorrhage. Normal morphology including the major midline structures, sella, posterior fossa and cerebellar pontine angle. Normal intracranial flow voids. No hydrocephalus or extra-axial fluid collections. Postoperative changes in the globes. Paranasal sinuses and mastoids are clear. Normal bone marrow signal. IMPRESSION: 1. 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 2. No acute intracranial MRI findings. No evidence of acute infarction or hemorrhage. 3. Age-appropriate parenchymal volume loss. Dictated by: Dictated on workstation # [id number]
== END ==
LOC: RAD 14:45
PROVIDERS: ATTEND Ophthalmology
DX: G31.1 Senile degeneration of brain, not elsewhere classified (principal); G93.89 Other specified disorders of brain; H50.05 Alternating esotropia; H50.21 Vertical strabismus, right eye; R29.891 Ocular torticollis
CPT/HCPCS: 70553

== ENCOUNTER 2023-08-01 18:55 | Emergency (ER) | payer MEDICARE ==
[~2023-08-01] VITALS: Ht 160 cm; Wt 74.0 kg
[~2023-08-01 18:55] MED LIST changes: -GADOTERATE 0.5 MMOL/ML (CLARISCAN) 15 ML VIAL IV ONE
[2023-08-01] MEDS ORDERED: SEMA1PEN3 (19:14)
[2023-08-01] MEDS ORDERED: METF-399 (19:14)
[2023-08-01] MEDS ORDERED: FAMOTIDINE 20 MG TABLET PO STA (19:20)
[2023-08-01] MEDS ORDERED: NS IV 500 ML 500 ML IV ONE ×2 (19:30→20:30)
--- NOTE | 2023-08-01 19:30 | ED General ---
General Chief Complaint: Abdominal/GI Problems Stated Complaint: NAUSEA, VOMITING, WEAKNESS, LOW APPETITE Nursing Triage Note: diarrhea last week, vomitting/decreased appetite today. Source of Information: Patient Exam Limitations: No Limitations History of Present Illness Date Seen by Provider: Aug 01, 2023 Time Seen by Provider: 19:11 Initial Comments Here with report of feeling weak and decreased appetite today. She has had a diarrheal illness recently that has improved but today has had some vomiting. Does have history of blood sugar problems and recently started on Ozempic per the daughter who is her caregiver as well. Daughter states that she just seems to be a little bit more weak today and they were concerned about possible dehydration. Patient denies any specific pain but does admit to the weakness. Apparently she did have several episodes of small vomiting tonight but is feeling better now. Patient does have history of reflux disease and daughter states that she does take [id number]-[id number] PPI and she did take that tonight. She has not had her evening blood pressure medicine yet. Denies blood in her urine or stool, dysuria, chest pain, breathing problems, fever or chills or recent upper respiratory infection. Daughter was concerned because her blood sugars have been ranging in the upper 100s to low 200s despite being on Ozempic. Patient follows with Dr. Diony Giles. Timing/Duration: 1 Week, Intermittent, Other (Little worse today but better tonight) Severity: Moderate Associated Systoms: No Cough, No Fever/Chills; Nausea/Vomiting; No Shortness of Air; Weakness Allergies and Home Medications Allergies Coded Allergies: amoxicillin (Verified Allergy, Unknown, 03/30/22) clavulanic acid (Verified Allergy, Unknown, 03/30/22) Patient Home Medication List Home Medication List Reviewed: Yes Ascorbate Calcium (Vitamin C) 500 Mg Tablet, 500 MG PO DAILY, (Reported) Entered as Reported by: SUNDAR ONEAL on 03/29/221548 Aspirin (Vazalore) 81 Mg Capsule, 81 MG PO DAILY, (Reported) Entered as Reported by: SUNDAR ONEAL on 03/29/221548 Cholecalciferol (Vitamin D3) (Vitamin D3) 50 Mcg (2000 Unit) Tablet, 50 MCG PO DAILY, (Reported) Entered as Reported by: SUNDAR ONEAL on 03/29/221548 Glimepiride (Glimepiride) 2 Mg Tablet, 2 MG PO DAILY, (Reported) Entered as Reported by: SUNDAR ONEAL on 03/29/221548 Losartan Potassium (Losartan Potassium) 25 Mg Tablet, 25 MG PO HS, (Reported) Entered as Reported by: SUNDAR ONEAL on 03/29/221548 Metformin HCl (Metformin HCl) 500 Mg Tablet, 500 MG PO BIDPC, (Reported) Entered as Reported by: SUNDAR ONEAL on 03/29/221548 Metformin HCl (Metformin HCl) 1,000 Mg Tablet, (Reported) Entered as Reported by: QUINTEN MOONEY on 08/01/231913 Last Action: New Order Semaglutide (Ozempic) 1 Mg/0.75 Ml (4 Mg/3 Ml) Pen.injctr, (Reported) Entered as Reported by: QUINTEN MOONEY on 08/01/231913 Last Action: New Order Simvastatin (Simvastatin) 20 Mg Tablet, 20 MG PO HS, (Reported) Entered as Reported by: SUNDAR ONEAL on 03/29/221548 Vit A/C/E/Zinc/Co (Preservision Areds Softgel) 14,320-226 Capsule, 1 CAP PO BID, (Reported) Entered as Reported by: SUNDAR ONEAL on 03/29/221548 Zinc (Zinc) 50 Mg Tablet, 50 MG PO DAILY, (Reported) Entered as Reported by: SUNDAR ONEAL on 03/29/221548 [Prevagen] , 1 EA PO DAILY, (Reported) Entered as Reported by: SUNDAR ONEAL on 03/29/221548 Review of Systems Review of Systems Constitutional: No chills, No fever EENTM: no symptoms reported Respiratory: No cough, No short of breath Cardiovascular: no symptoms reported Gastrointestinal: see HPI Genitourinary: see HPI Musculoskeletal: no symptoms reported Past Duyliaz-Hzhwie-Fzlyfi Hx Patient Social History Tobacco Use?: No Substance use?: No Alcohol Use?: No Pt feels they are or have been: No Past Medical History Surgery/Hospitalization HX: bilateral cataracts, htn, gerd, hld, niddm Surgeries: Yes Eye Surgery, Tubal Ligation Respiratory: No Cardiac: Yes Heart Murmur, Hypertension 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 oz. kg; 28.00 BMI Method: General Appearance: No Apparent Distress, WD/WN HEENT: PERRL/EOMI, Pharynx Normal Neck: Non Tender, Supple Respiratory: Lungs Clear, Normal Breath Sounds Cardiovascular: Regular Rate, Rhythm, No Murmur Gastrointestinal: Non Tender, Soft Back: Normal Inspection, No CVA Tenderness, No Vertebral Tenderness Extremity: Normal Range of Motion, Non Tender Neurologic/Psychiatric: Alert, Oriented x3 Skin: Normal Color, Warm/Dry Progress/Results/Core Measures Suspected Sepsis SIRS Temperature: Pulse: 88 Respiratory Rate: 16 Laboratory Tests 08/01/23 19:36: White Blood Count 8.7 Blood Pressure 193 /79 Mean: 117 Laboratory Tests 08/01/23 19:36: Creatinine 0.81, Platelet Count 206, Total Bilirubin 0.8 Results/Orders Lab Results Laboratory Tests Test 08/01/23 19:36 Range/Units White Blood Count 8.7 4.3-11.0 10^3/uL Red Blood Count 4.74 3.80-5.11 10^6/uL Hemoglobin 13.9 11.5-16.0 g/dL Hematocrit 42 35-52 % Mean Corpuscular Volume 89 80-99 fL Mean Corpuscular Hemoglobin 29 25-34 pg Mean Corpuscular Hemoglobin Concent 33 32-36 g/dL Red Cell Distribution Width 13.9 10.0-14.5 % Platelet Count 206 130-400 10^3/uL Mean Platelet Volume 10.4 9.0-12.2 fL Immature Granulocyte % (Auto) 1 % Neutrophils (%) (Auto) 53 42-75 % Lymphocytes (%) (Auto) 31 12-44 % Monocytes (%) (Auto) 12 0-12 % Eosinophils (%) (Auto) 3 0-10 % Basophils (%) (Auto) 1 0-10 % Neutrophils # (Auto) 4.6 1.8-7.8 10^3/uL Lymphocytes # (Auto) 2.7 1.0-4.0 10^3/uL Monocytes # (Auto) 1.0 0.0-1.0 10^3/uL Eosinophils # (Auto) 0.3 0.0-0.3 10^3/uL Basophils # (Auto) 0.0 0.0-0.1 10^3/uL Immature Granulocyte # (Auto) 0.1 0.0-0.1 10^3/uL Urine Color YELLOW Urine Clarity CLEAR Urine pH 5.5 5-9 Urine Specific [place] 1.025 H 1.016-1.022 Urine Protein 1+ H NEGATIVE Urine Glucose (UA) NEGATIVE NEGATIVE Urine Ketones 1+ H NEGATIVE Urine Nitrite NEGATIVE NEGATIVE Urine Bilirubin NEGATIVE NEGATIVE Urine Urobilinogen 0.2 < = 1.0 MG/DL Urine Leukocyte Esterase TRACE H NEGATIVE Urine RBC (Auto) NEGATIVE NEGATIVE Urine RBC NONE /HPF Urine WBC 0-2 /HPF Urine Squamous Epithelial Cells 10-25 H /HPF Urine Crystals NONE /LPF Urine Bacteria FEW H /HPF Urine Casts PRESENT /LPF Urine Hyaline Casts RARE /LPF Urine Mucus SMALL H /LPF Urine Culture Indicated NO Sodium Level 140 135-145 MMOL/L Potassium Level 4.2 3.6-5.0 MMOL/L Chloride Level 104 98-107 MMOL/L Carbon Dioxide Level 24 21-32 MMOL/L Anion Gap 12 5-14 MMOL/L Blood Urea Nitrogen 17 7-18 MG/DL Creatinine 0.81 0.60-1.30 MG/DL Estimat Glomerular Filtration Rate 72 BUN/Creatinine Ratio 21 Glucose Level 173 H 70-105 MG/DL Calcium Level 9.5 8.5-10.1 MG/DL Corrected Calcium 9.6 8.5-10.1 MG/DL Total Bilirubin 0.8 0.1-1.0 MG/DL Aspartate Amino Transf (AST/SGOT) 20 5-34 U/L Alanine Aminotransferase (ALT/SGPT) 19 0-55 U/L Alkaline Phosphatase 73 40-136 U/L C-Reactive Protein High Sensitivity 0.44 0.00-0.50 MG/DL Total Protein 6.8 6.4-8.2 GM/DL Albumin 3.9 3.2-4.5 GM/DL My Orders Orders - [facility] [place] MD Cbc And Automated Diff (08/01/23 19:20) Comprehensive Metabolic Panel (08/01/23 19:20) Hs C Reactive Protein (08/01/23 19:20) Ua Culture If Indicated (08/01/23 19:20) Famotidine Tablet (Famotidine Tablet) (08/01/23 19:20) Ed Iv/Invasive Line Start (08/01/23 19:20) Ns Iv 500 Ml (Ns Iv 500 Ml) (08/01/23 19:30) Ns Iv 500 Ml (Ns Iv 500 Ml) (08/01/23 20:30) Acetaminophen Tablet (Acetaminophen Ta (08/01/23 20:23) Medications Given in ED Current Medications Medications Dose Ordered Sig/Seth Route Start Time Stop Time Status Last Admin Dose Admin Sodium Chloride 500 ml @ 0 mls/hr Q0M ONCE IV 08/01/23 19:30 08/01/23 19:31 DC 08/01/23 19:34 0 MLS/HR Sodium Chloride 500 ml @ 0 mls/hr Q0M ONCE IV 08/01/23 20:30 08/01/23 20:31 DC 08/01/23 20:30 0 MLS/HR Vital Signs/I&O 08/01/23 19:06 Temp 36.8 Pulse 88 Resp 16 B/P (MAP) 193/79 (117) Pulse Ox 96 O2 Delivery Room Air Capillary Refill : Less Than 3 Seconds Blood Pressure Mean: 117 Progress Note : Progress Note Seen and evaluated. IV, labs including CBC, CMP, CRP and UA ordered. Normal saline 1 L bolus ordered. Pepcid 20 mg p.o. Monitor patient. Differential diagnosis includes UTI, dehydration, electrolyte abnormality, viral GI disorder 2011: CBC reviewed and is grossly normal. CMP reviewed grossly normal except for slightly elevated glucose. UA contaminated but otherwise nonconcerning and CRP is negative. 2023: Patient is doing a little better and actually feels better. She does have a slight headache which she commonly gets and its not out of character with her normal or worse than normal. We will give 1 g of Tylenol p.o. and I will give another 500 mL bolus of normal saline. Patient and daughter both admit that she does not drink well enough and this may be part of the cause of the problem. I will send a copy of the chart to Dr. Giles but anticipate discharge after repeat fluid bolus. Patient and daughter are in agreement with this. Monitor patient. 2054: Overall doing better. I did caution her about ibuprofen use as this may be adding to the stomach upset. We will discuss dosing and discharge instructions. She will discuss this with her doctor as well. Discharged home with return precautions. Patient and daughter verbalized understanding instructions and agreement with plan. Departure Impression Primary Impression: Dehydration Additional Impression: Nausea and vomiting Qualified Codes: R11.2 - Nausea with vomiting, unspecified Disposition: 01 HOME, SELF-CARE Condition: Improved Departure-Patient Inst. Decision time for Depature: 20:57 Referrals: DIONY GILES MD (PCP/Family) Primary Care Physician Patient Instructions: Nausea and Vomiting, Adult, Dehydration, Adult (DC) Add. Discharge Instructions: All discharge instructions reviewed with patient and/or family. Voiced understanding. Treat plenty of fluids by taking small sips frequently. You should monitor your urine and keep it in the mid yellow or light yellow range. Follow-up with Dr. Giles for recheck and further evaluation. Discussed with him regarding her blood sugar control and medications. A copy of the chart was sent to him. Return for worse pain, fever, vomiting, weakness, breathing problems or other concerns as needed. Otherwise continue home medications as previously prescribed. You may take Tylenol/acetaminophen 1000 mg every 6-8 hours as needed for pain. You may take ibuprofen 400 mg every 6-8 hours as needed for pain. Ibuprofen may cause stomach upset so you should try to minimize its use. You can discuss all of this with your doctor as well. Copy Copies To 1: DIONY GILES MD, TIMOTHY D MD Aug 01, 2023 19:30
[2023-08-01 19:45] LABS: BASOPHILS % (AUTO) 1 % (0-10); EOSINOPHILS # (AUTO) 0.3 10^3/uL (0.0-0.3); EOSINOPHILS % (AUTO) 3 % (0-10); HEMATOCRIT 42 % (35-52); HEMOGLOBIN 13.9 g/dL (11.5-16.0); LYMPHOCYTES # (AUTO) 2.7 10^3/uL (1.0-4.0); LYMPHOCYTES % (AUTO) 31 % (12-44); MEAN CORPUSCULAR HEMOGLOBIN 29 pg (25-34); MEAN CORPUSCULAR HGB CONC 33 g/dL (32-36); MEAN CORPUSCULAR VOLUME 89 fL (80-99); MEAN PLATELET VOLUME 10.4 fL (9.0-12.2); MONOCYTES % (AUTO) 12 % (0-12); NEUTROPHILS # (AUTO) 4.6 10^3/uL (1.8-7.8); NEUTROPHILS % (AUTO) 53 % (42-75); PLATELET COUNT 206 10^3/uL (130-400); WHITE BLOOD COUNT 8.7 10^3/uL (4.3-11.0)
[2023-08-01 20:01] LABS: ALBUMIN 3.9 GM/DL (3.2-4.5); BILIRUBIN,TOTAL 0.8 MG/DL (0.1-1.0); CALCIUM 9.5 MG/DL (8.5-10.1); CREATININE SERUM 0.81 MG/DL (0.60-1.30); POTASSIUM 4.2 MMOL/L (3.6-5.0); TOTAL PROTEIN 6.8 GM/DL (6.4-8.2)
[2023-08-01 20:02] LABS: BACTERIA,URINE FEW /HPF; BILIRUBIN,URINE NEGATIVE (NEGATIVE); CLARITY,URINE CLEAR; COLOR,URINE YELLOW; GLUCOSE, URINE (UA) NEGATIVE (NEGATIVE); HYALINE CASTS, URINE RARE /LPF; KETONES,URINE 1+ (NEGATIVE); LEUKOCYTE ESTERASE ,URINE TRACE (NEGATIVE); NITRITE,URINE NEGATIVE (NEGATIVE); PH,URINE 5.5 (5-9); PROTEIN,URINE 1+ (NEGATIVE); WBC,URINE 0-2 /HPF
[2023-08-01] MEDS ORDERED: ACETAMINOPHEN 500 MG TABLET PO STA (20:23)
[2023-08-01 21:00] VITALS: BP 169/83
== END 2023-08-01 21:02 | disposition home or self-care (01) ==
LOC: EDUNIT# 18:55 → ER 18:59
DX: E86.0 Dehydration (principal); R11.2 Nausea with vomiting, unspecified
CPT/HCPCS: 36415; 80053; 81000; 85025; 86141; 96360

== ENCOUNTER 2023-08-16 16:14 | Emergency (ER) | payer MEDICARE ==
[~2023-08-16] VITALS: Ht 152.4 cm; Wt 77.0 kg
[~2023-08-16 16:14] MED LIST changes: +METF-399; +SEMA1PEN3
--- NOTE | 2023-08-16 16:48 | ED GI ---
General Chief Complaint: Abdominal/GI Problems Stated Complaint: VOMITING, CONSTIPATED Nursing Triage Note: pt ambulatory to room. states she has been constipated for approx 1 week "more or less." states vomiting started today. states took a dulcolax today, but no other laxatives. states she started ozempic approx 2 months ago and has had gi troubles since then Source of Information: Patient Exam Limitations: No Limitations History of Present Illness Date Seen by Provider: Aug 16, 2023 Time Seen by Provider: 16:24 Initial Comments 82-year-old female presents fearing she may be constipated. Symptoms present for about a week. She is having very small pellet sized bowel movement once a d ay for the last week. Today she started to have nausea with some vomiting. She did start Ozempic a couple of weeks ago. She states she has been having GI problems since then. Initially she had loose stools and now states she is having constipation. She tried Dulcolax once today without any relief. She did take some Zofran this morning as well. She has some mild diffuse abdominal discomfort but no focal tenderness. No urinary symptoms. All other systems reviewed and negative except documented per HPI. Voice recognition software was used to help create this chart Allergies and Home Medications Allergies Coded Allergies: amoxicillin (Verified Allergy, Unknown, 03/30/22) clavulanic acid (Verified Allergy, Unknown, 03/30/22) Patient Home Medication List Home Medication List Reviewed: Yes Ascorbate Calcium (Vitamin C) 500 Mg Tablet, 500 MG PO DAILY, (Reported) Entered as Reported by: SUNDAR ONEAL on 03/29/221548 Aspirin (Vazalore) 81 Mg Capsule, 81 MG PO DAILY, (Reported) Entered as Reported by: SUNDAR ONEAL on 03/29/221548 Cholecalciferol (Vitamin D3) (Vitamin D3) 50 Mcg (2000 Unit) Tablet, 50 MCG PO DAILY, (Reported) Entered as Reported by: SUNDAR ONEAL on 03/29/221548 Glimepiride (Glimepiride) 2 Mg Tablet, 2 MG PO DAILY, (Reported) Entered as Reported by: SUNDAR ONEAL on 03/29/221548 Losartan Potassium (Losartan Potassium) 25 Mg Tablet, 25 MG PO HS, (Reported) Entered as Reported by: SUNDAR ONEAL on 03/29/221548 Metformin HCl (Metformin HCl) 500 Mg Tablet, 500 MG PO BIDPC, (Reported) Entered as Reported by: SUNDAR ONEAL on 03/29/221548 Metformin HCl (Metformin HCl) 1,000 Mg Tablet, (Reported) Entered as Reported by: QUINTEN MOONEY on 08/01/231913 Semaglutide (Ozempic) 1 Mg/0.75 Ml (4 Mg/3 Ml) Pen.injctr, (Reported) Entered as Reported by: QUINTEN MOONEY on 08/01/231913 Simvastatin (Simvastatin) 20 Mg Tablet, 20 MG PO HS, (Reported) Entered as Reported by: SUNDAR ONEAL on 03/29/221548 Vit A/C/E/Zinc/Co (Preservision Areds Softgel) 14,320-226 Capsule, 1 CAP PO BID, (Reported) Entered as Reported by: SUNDAR ONEAL on 03/29/221548 Zinc (Zinc) 50 Mg Tablet, 50 MG PO DAILY, (Reported) Entered as Reported by: SUNDRA ONEAL on 03/29/221548 [Prevagen] , 1 EA PO DAILY, (Reported) Entered as Reported by: SUNDAR ONEAL on 03/29/221548 Review of Systems Review of Systems Constitutional: see HPI Past Igijpwz-Ymmijl-Dbkjav Hx Patient Social History Tobacco Use?: No Use of E-Cig and/or Vaping dev: No Substance use?: No Alcohol Use?: No Past Medical History Surgery/Hospitalization HX: bilateral cataracts, htn, gerd, hld, niddm Surgeries: Yes Eye Surgery, Tubal Ligation Respiratory: No Cardiac: Yes Heart Murmur, Hypertension 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 oz. kg; 33.00 BMI Method: General Appearance: WD/WN, no apparent distress HEENT: normal ENT inspection, pharynx normal Neck: non-tender, supple Respiratory: chest non-tender, lungs clear, normal breath sounds, no respirator y distress, no accessory muscle use Cardiovascular: regular rate, rhythm, no murmur Gastrointestinal: normal bowel sounds, soft, no organomegaly, tenderness (Mild diffuse tenderness without rebound or guarding. No mass organomegaly. No skin changes.) Back: normal inspection, no CVA tenderness, no vertebral tenderness Neurologic/Psychiatric: alert, oriented x 3 Skin: normal color, warm/dry Progress/Results/Core Measures Results/Orders Lab Results Laboratory Tests Test 08/16/23 16:45 Range/Units White Blood Count 7.3 4.3-11.0 10^3/uL Red Blood Count 4.60 3.80-5.11 10^6/uL Hemoglobin 13.5 11.5-16.0 g/dL Hematocrit 41 35-52 % Mean Corpuscular Volume 90 80-99 fL Mean Corpuscular Hemoglobin 29 25-34 pg Mean Corpuscular Hemoglobin Concent 33 32-36 g/dL Red Cell Distribution Width 13.9 10.0-14.5 % Platelet Count 217 130-400 10^3/uL Mean Platelet Volume 10.6 9.0-12.2 fL Immature Granulocyte % (Auto) 1 % Neutrophils (%) (Auto) 59 42-75 % Lymphocytes (%) (Auto) 28 12-44 % Monocytes (%) (Auto) 10 0-12 % Eosinophils (%) (Auto) 2 0-10 % Basophils (%) (Auto) 1 0-10 % Neutrophils # (Auto) 4.3 1.8-7.8 10^3/uL Lymphocytes # (Auto) 2.0 1.0-4.0 10^3/uL Monocytes # (Auto) 0.7 0.0-1.0 10^3/uL Eosinophils # (Auto) 0.1 0.0-0.3 10^3/uL Basophils # (Auto) 0.0 0.0-0.1 10^3/uL Immature Granulocyte # (Auto) 0.0 0.0-0.1 10^3/uL Sodium Level 135 135-145 MMOL/L Potassium Level 4.1 3.6-5.0 MMOL/L Chloride Level 102 98-107 MMOL/L Carbon Dioxide Level 22 21-32 MMOL/L Anion Gap 11 5-14 MMOL/L Blood Urea Nitrogen 19 H 7-18 MG/DL Creatinine 0.79 0.60-1.30 MG/DL Estimat Glomerular Filtration Rate 74 BUN/Creatinine Ratio 24 Glucose Level 232 H 70-105 MG/DL Calcium Level 8.9 8.5-10.1 MG/DL Corrected Calcium 9.0 8.5-10.1 MG/DL Total Bilirubin 1.1 H 0.1-1.0 MG/DL Aspartate Amino Transf (AST/SGOT) 33 5-34 U/L Alanine Aminotransferase (ALT/SGPT) 27 0-55 U/L Alkaline Phosphatase 62 40-136 U/L Total Protein 6.8 6.4-8.2 GM/DL Albumin 3.9 3.2-4.5 GM/DL Lipase 48 8-78 U/L My Orders Orders - ROC SOMMER DO Comprehensive Metabolic Panel (08/16/23 16:38) Lipase (08/16/23 16:38) Ua Culture If Indicated (08/16/23 16:38) Ct Abdomen/Pelvis Wo (08/16/23 16:38) Cbc And Automated Diff (08/16/23 16:38) Ondansetron Injection (Ondansetron Inj (08/16/23 17:00) Vital Signs/I&O 08/16/23 16:28 Temp 36.4 Pulse 93 Resp 20 B/P (MAP) 172/92 (118) Pulse Ox 96 Blood Pressure Mean: 118 Departure Communication (Admissions) Patient is hemodynamically stable with a nonsurgical abdominal exam. CT scan obtained for concern for possible obstruction. This is negative. I have independently reviewed the images. She does appear constipated. I recommended mag citrate x1 now and daily MiraLAX. Discharged in stable condition with supportive care. Impression Primary Impression: Constipation Qualified Codes: K59.00 - Constipation, unspecified Disposition: HOME, SELF-CARE Condition: Stable Departure-Patient Inst. Referrals: ROCIO GILES MD (PCP/Family) Primary Care Physician Patient Instructions: Constipation, Adult (DC) Add. Discharge Instructions: Your CT scan shows no evidence for obstruction. I recommend you get some magnesium citrate [id number] and take half of the bottle when you get home. If you have not had a bowel movement 2 hours take the other half. Use MiraLAX, 1 capful dissolved in liquid daily. Return to the emergency department for any severe concerns. Follow-up with your primary doctor for any noneme rgent needs. All discharge instructions reviewed with patient and/or family. Voiced understanding. ROC SOMMER DO Aug 16, 2023 16:48
[2023-08-16 16:54] LABS: BASOPHILS % (AUTO) 1 % (0-10); EOSINOPHILS # (AUTO) 0.1 10^3/uL (0.0-0.3); EOSINOPHILS % (AUTO) 2 % (0-10); HEMATOCRIT 41 % (35-52); HEMOGLOBIN 13.5 g/dL (11.5-16.0); LYMPHOCYTES % (AUTO) 28 % (12-44); MEAN CORPUSCULAR HEMOGLOBIN 29 pg (25-34); MEAN CORPUSCULAR HGB CONC 33 g/dL (32-36); MEAN CORPUSCULAR VOLUME 90 fL (80-99); MEAN PLATELET VOLUME 10.6 fL (9.0-12.2); MONOCYTES # (AUTO) 0.7 10^3/uL (0.0-1.0); MONOCYTES % (AUTO) 10 % (0-12); NEUTROPHILS # (AUTO) 4.3 10^3/uL (1.8-7.8); NEUTROPHILS % (AUTO) 59 % (42-75); PLATELET COUNT 217 10^3/uL (130-400); WHITE BLOOD COUNT 7.3 10^3/uL (4.3-11.0)
[2023-08-16] MEDS ORDERED: ONDANSETRON INJECTION 4 MG/2 ML (SDV) IVP ONE (17:00)
[2023-08-16 17:05] LABS: ALBUMIN 3.9 GM/DL (3.2-4.5); POTASSIUM 4.1 MMOL/L (3.6-5.0)
[2023-08-16 17:07] LABS: CALCIUM 8.9 MG/DL (8.5-10.1)
[2023-08-16 17:08] LABS: TOTAL PROTEIN 6.8 GM/DL (6.4-8.2)
[2023-08-16 17:10] LABS: BILIRUBIN,TOTAL 1.1 MG/DL (0.1-1.0)
[2023-08-16 17:11] LABS: CREATININE SERUM 0.79 MG/DL (0.60-1.30)
--- NOTE | 2023-08-16 17:21 | Diagnostic Imaging Report ---
PROCEDURE: CT abdomen and pelvis without contrast. TECHNIQUE: Multiple contiguous axial images were obtained through the abdomen and pelvis without the use of intravenous contrast. Auto Exposure Controls were utilized during the CT exam to meet ALARA standards for radiation dose reduction. INDICATION: 82-year-old female, constipated for approximately one week, started vomiting today. CORRELATION STUDY: 03/29/2022. FINDINGS: LOWER THORAX: Clear. Small esophageal hernia. LIVER: 16.9 cm. No focal lesion on unenhanced imaging. GALLBLADDER: Present and unremarkable. No bile duct dilatation. SPLEEN: A few calcified granulomas, otherwise unremarkable. PANCREAS: Unremarkable. ADRENAL GLANDS: 2.0 x 1.5 cm left adrenal gland mass, relatively stable from prior. KIDNEYS: Normal configuration. No calcification or obstruction. ABDOMINAL AORTA: Scattered wall calcification, nonaneurysmal. GASTROINTESTINAL TRACT: Stomach relatively decompressed. No small bowel obstruction. There is mild stool throughout the colon. No overt constipation or fecal impaction. There is very mild distal colonic fecal loading. Scattered extensive colonic diverticulosis without diverticulitis. Normal appendix. No significant ascites. Fat-containing inguinal and small retro-umbilical hernia. URINARY BLADDER: Decompressed. REPRODUCTIVE: Uterus and adnexa appear unchanged and unremarkable. OSSEOUS STRUCTURES: No acute abnormality. IMPRESSION: 1. Mild stool retention without overt constipation or fecal impaction. No bowel obstruction. Extensive scattered colonic diverticulosis without diverticulitis. Dictated by: Dictated on workstation # [id number]
[2023-08-16 17:41] VITALS: BP 152/72
== END 2023-08-16 17:41 | disposition home or self-care (01) ==
LOC: EDUNIT# 16:14 → ER 16:17
DX: K59.00 Constipation, unspecified (principal)
CPT/HCPCS: 36415; 74176; 80053; 83690; 85025